=== PATIENT | female | born 1930 | race Hispanic/Latino ===

== ENCOUNTER 2017-01-28 11:45 | Inpatient (IN) | payer MEDICARE, OTHER ==
--- NOTE | 2017-01-28 12:27 | ED PDOC ---
Arrival/HPI - General Chief Complaint: Trauma Time Seen by Provider: 01/28/17 12:00 Historian: Patient - History of Present Illness Narrative History of Present Illness (Text): 01/28/17 12:22 Patient is an 86 year old female whose past medical history includes hypertension and diabetes, who presents to the emergency department after fall with head trauma prior to arrival. Patient states she was standing when she suddenly felt lightheaded and called out to her friend before she fell. She reports that she fell backward onto the hard floor. Patient reports she did not lose consciousness. Denies shortness of breath, chest pain, or abdominal pain before the fall. 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 Currently patient reports she bumped her head and has some neck discomfort. Reports that she takes aspirin 81mg daily. PMD: Dr. Jesús Nielsen Time/Duration: Prior to Arrival Symptom Onset: Sudden Symptom Course: Resolved Modifying Factors (Text): None Associated Symptoms (Text): None Past Medical History - Provider Review Nursing Documentation Reviewed: Yes - Infectious Disease Hx of Infectious Diseases: None - Reproductive Menopause: Yes - Cardiac Hx Hypertension: Yes - Endocrine/Metabolic Hx Diabetes Mellitus Type 2: Yes - Psychiatric Hx Substance Use: No - Anesthesia Hx Anesthesia: No Family/Social History - Physician Review Nursing Documentation Reviewed: Yes Family/Social History: Unknown Family HX Smoking Status: Unknown If Ever Smoked Hx Alcohol Use: No Hx Substance Use: No Allergies/Home Meds Allergies/Adverse Reactions: Allergies No Known Allergies Allergy (Verified 01/28/17 12:03) Home Medications: Home Meds Medication Instructions Recorded Confirmed Glyburide/Metformin HCl 5 mg PO BID 01/28/17 01/28/17 [Glyburid-Metformin 1.25-250 mg] Lisinopril [Zestril] 0 mg PO 01/28/17 MetFORMIN [glucOPHAGE] 500 mg PO BID 01/28/17 01/28/17 Verapamil HCl [Verapamil Sr] 0 mg PO DAILY 01/28/17 01/28/17 Review of Systems - Review of Systems Eyes: absent: Vision Changes ENT: absent: Hearing Changes Respiratory: absent: SOB, Cough Cardiovascular: absent: Chest Pain, Palpitations Gastrointestinal: absent: Abdominal Pain, Nausea, Vomiting Genitourinary Female: absent: Dysuria, Frequency, Hematuria Musculoskeletal: Neck Pain, Other (Posterior head swelling) Skin: absent: Rash Neurological: Other (Lightheadedness). absent: Headache Endocrine: absent: Diaphoresis Psychiatric: absent: Depression Physical Exam Vital Signs Reviewed: Yes Vital Signs Temp Pulse Resp BP Pulse Ox 01/28/17 12:05 98.2 F 80 18 178/111 H 98 Temperature: Afebrile Blood Pressure: Hypertensive Pulse: Regular Respiratory Rate: Normal Appearance: Positive for: Well-Appearing, Non-Toxic, Comfortable Pain Distress: None Mental Status: Positive for: Alert and Oriented X 3 Finger Stick Blood Glucose: 246 - Systems Exam Head: Present: Normocephalic, Other (Large posterior hematoma on scalp. No laceration) Pupils: Present: PERRL Extroacular Muscles: Present: EOMI Conjunctiva: Present: Normal Mouth: Present: Moist Mucous Membranes Neck: Present: Normal Range of Motion. No: MIDLINE TENDERNESS Respiratory/Chest: Present: Clear to Auscultation, Good Air Exchange. No: Respiratory Distress, Accessory Muscle Use Cardiovascular: Present: Regular Rate and Rhythm, Normal S1, S2. No: Murmurs Abdomen: Present: Normal Bowel Sounds. No: Tenderness, Distention, Peritoneal Signs Back: Present: Normal Inspection Upper Extremity: Present: Normal Inspection. No: Cyanosis, Edema Lower Extremity: Present: Normal Inspection, Normal ROM. No: Edema Neurological: Present: GCS=15, CN II-XII Intact, Speech Normal, Gait Normal Skin: Present: Warm, Dry, Normal Color. No: Rashes Psychiatric: Present: Alert, Oriented x 3, Normal Insight, Normal Concentration Medical Decision Making ED Course and Treatment: Impression: Patient is an 86 year old female whose past medical history includes hypertension and diabetes, who presents to the emergency department after fall with head trauma prior to arrival. R/o injury from fall and will need admission to evaluate for cause of lightheadedness causing fall. Differential Diagnosis included but are not limited to: Plan: -- CT Head, C-spine -- CXR -- Labs -- Reassess and disposition Progress Notes: PROCEDURE: CT HEAD WITHOUT CONTRAST. Filling Carrier : GAMA STEWART MD IMPRESSION: 1. 6 mm acute hemorrhagic contusion in the right posterior frontal lobe. Large left parieto-occipital scalp hematoma. 2. 12 x 10 mm left cerebello-pontine angle cyst an extra-axial calcified mass is most compatible with a calcified meningioma. 3. Left frontal lobe cystic encephalomalacia, sequela of remote insult. Status post left frontoparietal craniotomy. 4. Mild chronic microangiopathic changes and mild age-related global parenchymal volume loss. 01/28/17 13:07 CT shows R posterior frontal lobe hemorrhage measuring 6mm with L sided contusion consistent with contrecoup injury. Patient is neurologically intact. Platelets, hgb, and coagulation studies WNL. Paged PMD and Nsx 01/28/17 13:[address] Alli Verma and he is requesting Dr. Meade for neurology and Dr. Horn for Nsx. Will consult ICU for intracranial hemorrhage EKG shows NSR at [address] elevations, interpreted by me. 01/28/17 13:[address] Meade, aware of patient 01/28/17 13:[address] Horn, agrees patient is not surgical candidate, will follow patient. 01/28/17 13:[address] Fontaine, accepts for ICU admission. Repeat BP 156/81 - Critical Care Critical Care Minutes: 30 minutes - Lab Interpretations Lab Results: 01/28/17 12:20 01/28/17 12:20 Lab Results 01/28/17 12:20: Sodium 136, Potassium 4.0, Chloride 99, Carbon Dioxide 29, Anion Gap 12, BUN 17, Creatinine 0.6, Est GFR ( Amer) > 60, Est GFR (Non- Af Amer) > 60, Random Glucose 238 H, Calcium 9.1, Phosphorus 3.3, Magnesium 2.0 , Total Bilirubin 1.0, AST 22, ALT 36, Alkaline Phosphatase 120, Total Creatine Kinase 45, Troponin I 0.02, Total Protein 6.9, Albumin 4.0, Globulin 2.9, Albumin/Globulin Ratio 1.4 01/28/17 12:20: PT 11.7, INR 1.08, APTT 25.9 01/28/17 12:20: WBC 6.0, RBC 4.88, Hgb 15.3, Hct 43.6, MCV 89.3, MCH 31.4, MCHC 35.1, RDW 12.6, Plt Count 202, MPV 10.2, Gran % 71.7 H, Lymph % (Auto) 20.0 L, Newton % (Auto) 6.5 H, Eos % (Auto) 0.8 L, Baso % (Auto) 1.0, Gran # 4.27, Lymph # 1.2, Newton # 0.4, Eos # 0.1, Baso # 0.06 - RAD Interpretation Radiology Orders: 01/28/17 12:05 CHEST PORTABLE [RAD] Stat 01/28/17 12:06 CERVICAL SPINE W/O CONTRAST [CT] Stat HEAD W/O CONTRAST [CT] Stat - Scribe Statement The provider has reviewed the documentation as recorded by the Madalyn Kennedy Provider Scribe Attestation: All medical record entries made by the Madalyn were at my direction and personally dictated by me. I have reviewed the chart and agree that the record accurately reflects my personal performance of the history, physical exam, medical decision making, and the department course for this patient. I have also personally directed, reviewed, and agree with the discharge instructions and disposition. Disposition/Present on Arrival - Present on Arrival Any Indicators Present on Arrival: No History of DVT/PE: No History of Uncontrolled Diabetes: No Urinary Catheter: No History of Decub. Ulcer: No History Surgical Site Infection Following: None - Disposition Have Diagnosis and Disposition been Completed?: Yes Diagnosis: Intracranial hemorrhage after injury without loss of consciousness Disposition: HOSPITALIZED Disposition Time: 12:17 Patient Plan: ICU Patient Problems: Current Active Problems Problem Status Onset Intracranial hemorrhage after injury without loss of consciousness Acute Condition: CRITICAL Referrals: Cristofer Verma MD [Primary Care Provider] - Follow up with primary
[2017-01-28 12:28] LABS: ADD MANUAL DIFF? NO
[2017-01-28 12:36] LABS: BASO # 0.06 K/mm3 (0.0-2.0); EOS # 0.1 (0.0-0.7); EOS % 0.8 % (1.5-5.0); GRAN # 4.27 (1.4-6.5); GRAN % 71.7 % (50.0-68.0); HEMATOCRIT 43.6 % (36.0-48.0); LYMPH # 1.2 (1.2-3.4); MEAN CELL VOLUME 89.3 fL (80.0-105.0); MEAN CORPUSCULAR HEMOGLOBIN 31.4 pg (25.0-35.0); MEAN CORPUSCULAR HGB CONC 35.1 g/dl (31.0-37.0); MEAN PLATELET VOLUME 10.2 fl (7.0-11.0); MONO # 0.4 (0.1-0.6); MONO % 6.5 % (1.0-6.0); PLATELET COUNT 202 10^3/uL (120.0-450.0); RED CELL DISTRIBUTION WIDTH 12.6 % (11.5-14.5)
[2017-01-28 12:43] LABS: ALB/GLOB RATIO 1.4 (1.1-1.8); ALKALINE PHOSPHATASE 120 U/L (38-133); ALT/SGPT 36 U/L (7-56); AST/SGOT 22 U/L (15-39); BLOOD UREA NITROGEN 17 mg/dL (7-21); CALCIUM 9.1 mg/dL (8.4-10.5); CARBON DIOXIDE 29 mmol/L (21-33); CHLORIDE 99 mmol/L (98-107); GFR AFRICAN-AMERICAN > 60; GLUCOSE,RANDOM 238 mg/dL (70-110); INR 1.08 (0.93-1.08); PARTIAL THROMBOPLASTIN TIME 25.9 Seconds (23.7-30.8); PHOSPHOROUS 3.3 mg/dL (2.5-4.5); SODIUM 136 mmol/L (132-148); TOTAL PROTEIN 6.9 g/dL (5.8-8.3)
[2017-01-28 12:55] LABS: TROPONIN I 0.02 ng/mL
--- NOTE | 2017-01-28 13:08 | CT ---
PROCEDURE: CT HEAD WITHOUT CONTRAST. HISTORY: Fall COMPARISON: None available. TECHNIQUE: Axial computed tomography images were obtained through the head/brain without intravenous contrast. Radiation dose: Total exam DLP = 688.64 mGy-cm. This CT exam was performed using one or more of the following dose reduction techniques: Automated exposure control, adjustment of the mA and/or kV according to patient size, and/or use of iterative reconstruction technique. FINDINGS: HEMORRHAGE: There is a 6 mm hemorrhagic contusion in the right posterior frontal lobe. BRAIN: A 12 x 10 mm left cerebello-pontine angle cistern extra-axial calcified mass is present. There is left frontal lobe cystic encephalomalacia. Status post left frontoparietal craniotomy. There are mild chronic microangiopathic changes. There is no evidence of extra-axial fluid collection, herniation or midline shift. VENTRICLES: There is mild age-related global parenchymal volume loss and proportionate enlargement of the ventricles and cortical sulci. CALVARIUM: There is no calvarial fracture. There is a large left parieto-occipital scalp hematoma. PARANASAL SINUSES: There are aerosolized secretions in the right sphenoid chamber. There is mild mucosal thickening in the maxillary sinuses. The remaining included paranasal sinuses are predominantly clear. MASTOID AIR CELLS: Predominantly clear. OTHER FINDINGS: None. IMPRESSION: 1. 6 mm acute hemorrhagic contusion in the right posterior frontal lobe. Large left parieto-occipital scalp hematoma. 2. 12 x 10 mm left cerebello-pontine angle cyst an extra-axial calcified mass is most compatible with a calcified meningioma. 3. Left frontal lobe cystic encephalomalacia, sequela of remote insult. Status post left frontoparietal craniotomy. 4. Mild chronic microangiopathic changes and mild age-related global parenchymal volume loss. Findings were discussed with Dr. Ramona Tamez on 01/28/2017 at 1:05 p.m.
--- NOTE | 2017-01-28 13:18 | CT ---
PROCEDURE: CT Cervical Spine without contrast HISTORY: Fall with neck pain COMPARISON: None available. TECHNIQUE: Axial computed tomography images were obtained of the cervical spine without the use of intravenous contrast. Coronal and sagittal reformatted images were created and reviewed. Radiation dose: Total exam DLP = 460 mGy-cm. This CT exam was performed using one or more of the following dose reduction techniques: Automated exposure control, adjustment of the mA and/or kV according to patient size, and/or use of iterative reconstruction technique. FINDINGS: VERTEBRAE: No fracture. Normal alignment. No destructive bony lesion. DISCS/SPINAL CANAL/NEURAL FORAMINA: No significant central canal or neural foraminal stenosis. Discs heights are grossly preserved. PARASPINAL SOFT TISSUES: Unremarkable. OTHER FINDINGS: None. IMPRESSION: Unremarkable CT of the cervical spine.
--- NOTE | 2017-01-28 13:47 | RAD ---
HISTORY: fall COMPARISON: No prior. FINDINGS: LUNGS: No active pulmonary disease. PLEURA: No significant pleural effusion identified, no pneumothorax apparent. CARDIOVASCULAR: Normal. OSSEOUS STRUCTURES: No significant abnormalities. VISUALIZED UPPER ABDOMEN: Normal. OTHER FINDINGS: None. IMPRESSION: No active disease.
--- NOTE | 2017-01-28 14:55 | CON ---
DATE: 01/28/2017 HISTORY OF PRESENT ILLNESS: The patient seen and examined at bedside. This is an 86-year-old lady with history of hypertension and diabetes who presented to the Emergency Department after a fall with hitting her head prior to arrival. A small 5 mm hematoma was noted on CT head. Even though patient was deemed not needing neurosurgical intervention, ICU observation was recommended by neurosurgical service and the patient was admitted to ICU for overnight observation, blood pressure control and frequent neurological exam. No nausea, no vomiting, no diarrhea, no constipation, no chest pain, no shortness of breath. PAST MEDICAL HISTORY: Hypertension and diabetes. SOCIAL HISTORY: No alcohol or illicit drug abuse. No tobacco smoking. FAMILY HISTORY: Noncontributory. ALLERGIES: NKDA. MEDICATIONS AT HOME: Glyburide, metformin, lisinopril, verapamil. REVIEW OF SYSTEMS: Review of 12 organ system, other than mentioned in history of present illness, is negative. PHYSICAL EXAMINATION: VITAL SIGNS: Blood pressure 156/65, temperature 98.2, heart rate 80, respiration 18, oxygen saturation 98% on room air. HEAD AND NECK: Atraumatic. LUNGS: Clear to auscultation bilaterally. HEART: Regular rate and rhythm. S1, S2 normal. ABDOMEN: Soft, nontender, nondistended. MUSCULOSKELETAL: No C/C/E. NEUROLOGIC: The patient has 5/5 motor strength in both upper and lower extremities. There is no deficit in performing smiling, sticking out tongue, shrugging the shoulders or raising the eyebrows. The patient talks full sentences and speech is not affected. SKIN: Moist. PSYCHIATRIC: The patient is alert and oriented x 3. LABORATORY DATA: WBC 6, hemoglobin 15.3, platelet count 202. Sodium 136, potassium 4, chloride 99, carbon dioxide 29, BUN 17, creatinine 0.6, glucose 236. INR 1.08. CAT scan of the head revealed a 6 mm acute hemorrhagic contusion in the right posterior frontal lobe, large left parietooccipital scalp hematoma, 12 x 10 mm left cerebellar pontine angle cyst and extraaxial calcified masses most compatible with calcified meningioma, left frontal lobe cystic encephalomalacia , mild chronic microangiopathic changes and mild age-related global parenchymal volume loss. CAT scan of the cervical spine is unremarkable. Chest x-ray: No acute pulmonary disease. Some chronic changes, subsegmental right upper lobe atelectasis? ASSESSMENT AND PLAN: This is an 86-year-old lady with acute intracranial hemorrhage after fall. No neurological deficit. No need for neurosurgical intervention as per neurosurgeon, Dr. Horn. The patient is alert and oriented x 3. She is able to protect her airways. At present time, we will maintain her blood pressure between 140 and 160 range systolic. Will continue to target euvolemia, euglycemia, normothermia and oxygen saturation more than 90 %. Aggressively avoiding hypoglycemia and fever. The patient is not on any antiplatelets or anticoagulants. ccm time 40 min Jarocho Fontaine MD cc: [id number] TT: 01/28/2017 14:55:06 Confirmation # [id number] Dictation # [id number] mn JAMES
--- NOTE | 2017-01-28 16:51 | CARD ---
APPROVED REPORT EKG Measurement Heart [id number] CT [id number] <Conclusion> Normal sinus rhythm Cannot rule out Inferior infarct, age undetermined Abnormal ECG
[2017-01-28 17:55] VITALS: BMI 28.6
[2017-01-28] MEDS ORDERED: Pneumococcal 23-Valent Vaccine IM ONE (17:56)
[2017-01-28] MEDS: Insulin Reg-LOW-Coverage SC SCH ×4 (18:21→23:18)
[2017-01-28] MEDS: Sodium Chloride 0.9% 1,000 ML IV SCH (18:22)
--- NOTE | 2017-01-28 19:55 | CON ---
DATE: 01/28/2017 HISTORY OF PRESENT ILLNESS: This is an 86-year-old white female with diabetes, hypertension who came to the Emergency Room following a fall and had a small hematoma on the CAT scan. The patient is tra nsferred to ICU. The patient is more alert and awake. PAST MEDICAL HISTORY: Hypertension, diabetes. ALLERGIES: No known drug allergies. REVIEW OF SYSTEMS: A 10-point review of system was negative. A CAT scan of the head shows 6 mm hemorrhagic contusion on the right posterior frontal and large left parietal occipital hematoma. Also had left cerebellar pontine angle cyst and called to evaluate the patient. ALLERGY: No known drug allergy. MEDICATIONS AT HOME: Glyburide, metformin, lisinopril, and verapamil. PHYSICAL EXAMINATION: HEENT: Normocephalic, atraumatic. NECK: Supple. NEUROLOGIC: Alert, awake, oriented x 3. No aphasia. Cranial nerves II through XII were tested. Pu pils reactive. EOM intact. Visual soliman full. No facial asymmetry. Tongue midline. Spontaneous movement of the extremities noted. Deep tendon reflexes 1+. Both plantars are downgoing. Sensory a ppears intact. Cerebellar gait deferred. IMPRESSION: An 86-year-old with acute intracranial hemorrhage following a fall and neurosurgeon cons ulted. PLAN: Continue present management and we will follow up. Ranjan Meade MD cc: [id number] TT: 01/28/2017 19:54:10 Confirmation # [id number] Dictation # [id number] olimpia
[2017-01-29] MEDS: Insulin Reg-LOW-Coverage SC SCH ×7 (01:19→22:45)
[2017-01-29] MEDS: Sodium Chloride 0.9% 1,000 ML IV SCH (03:30)
[2017-01-29 05:27] LABS: ADD MANUAL DIFF? NO
[2017-01-29 05:38] LABS: HEMATOCRIT 43.4 % (36.0-48.0); MEAN CELL VOLUME 90.8 fL (80.0-105.0); WHITE BLOOD COUNT 8.4 10^3/ul (4.5-11.0)
[2017-01-29 05:39] LABS: BASO % 0.6 % (0.0-3.0); EOS # 0.2 (0.0-0.7); EOS % 2.7 % (1.5-5.0); GRAN # 5.37 (1.4-6.5); GRAN % 63.7 % (50.0-68.0); LYMPH % 23.6 % (22.0-35.0); MEAN CORPUSCULAR HEMOGLOBIN 30.8 pg (25.0-35.0); MEAN CORPUSCULAR HGB CONC 33.9 g/dl (31.0-37.0); MEAN PLATELET VOLUME 10.4 fl (7.0-11.0); MONO # 0.8 (0.1-0.6); MONO % 9.4 % (1.0-6.0); PLATELET COUNT 198 10^3/uL (120.0-450.0); RED CELL DISTRIBUTION WIDTH 13.1 % (11.5-14.5)
[2017-01-29 05:40] LABS: BASO # 0.05 K/mm3 (0.0-2.0)
[2017-01-29 05:59] LABS: ALB/GLOB RATIO 1.2 (1.1-1.8); ALKALINE PHOSPHATASE 92 U/L (38-133); ALT/SGPT 34 U/L (7-56); AST/SGOT 23 U/L (15-39); BLOOD UREA NITROGEN 15 mg/dL (7-21); CALCIUM 8.9 mg/dL (8.4-10.5); CARBON DIOXIDE 29 mmol/L (21-33); CHLORIDE 104 mmol/L (98-107); GFR AFRICAN-AMERICAN > 60; GLUCOSE,RANDOM 147 mg/dL (70-110); SODIUM 139 mmol/L (132-148); TOTAL PROTEIN 6.2 g/dL (5.8-8.3)
--- NOTE | 2017-01-29 08:38 | PN ---
DATE: 01/29/2017 SUBJECTIVE: The patient is resting in bed with no complaints of headache, dizziness and is alert and awake and very appropriate this morning. She stated that she continues to have a bump on the back o f her head from the fall. No fever or chills. No nausea or vomiting. No abdominal pain, no chest p ain, no cough or congestion. PHYSICAL EXAMINATION: VITAL SIGNS: Her temperature is 98.3, her pulse is 79, respirations are 16, and BP is 159/87. SKIN: Warm and dry. HEENT: Head there is a bump on the posterior aspect of her head from the fall, but normocephalic. NECK: Supple, no JVD, no thyroid enlargement, no lymph nodes. HEART: Has regular rate and rhythm, normal S1, S2. LUNGS: Reveal good breath sounds bilaterally. ABDOMEN: Soft, nontender, normal bowel sounds. No organomegaly noted. GENITALIA AND RECTAL: Deferred. MUSCULOSKELETAL: No joint deformities. EXTREMITIES: Reveal no significant edema. NEUROLOGIC: She seems to be grossly intact. LABORATORY DATA: As far her laboratories are concerned, her white count is 8.4, hemoglobin is 14.7, hematocrit 43.4 with platelets of 198,000. Her sodium is 139, potassium 4.0, chloride 104, CO2 of 29 with a BUN of 15, creatinine 0.6 and a glucose of 166. IMPRESSION: As far as my impression is concerned this patient has intracranial hemorrhage secondary to fall at home. She has a history of hypertension and diabetes. PLAN: We will continue with hydralazine for her blood pressure and insulin to regulate her blood sug ars. She is on Protonix as well as normal saline. Also, she is on some IV acetaminophen. The patie nt continues to get neuro checks and we will follow with neurology as well as neurosurgery. Zackary Reddy MD cc: [id number] TT: 01/29/2017 08:37:21 Confirmation # [id number] Dictation # [id number] olimpia
--- NOTE | 2017-01-29 10:22 | CT ---
PROCEDURE: CT HEAD WITHOUT CONTRAST. HISTORY: re-evaluate intracranial hemorrhage COMPARISON: 01/28/17 TECHNIQUE: Axial computed tomography images were obtained through the head/brain without intravenous contrast. Radiation dose: Total exam DLP = 677 mGy-cm. This CT exam was performed using one or more of the following dose reduction techniques: Automated exposure control, adjustment of the mA and/or kV according to patient size, and/or use of iterative reconstruction technique. FINDINGS: HEMORRHAGE: Stable 6 mm hyperdenisty inthe right posterior frontal lobe, possibily a small hemorrhage. BRAIN: 12 mm calcified meningioma in the left cp angle. Left frontal lobe cystic encephalomalacia. Status post left frontoparietal craniotomy no atrophy or chronic microvascular ischemic changes. VENTRICLES: Unremarkable. No hydrocephalus. CALVARIUM: Unremarkable. PARANASAL SINUSES: Unremarkable as visualized. No significant inflammatory changes. MASTOID AIR CELLS: Unremarkable as visualized. No inflammatory changes. OTHER FINDINGS: None. IMPRESSION: No interval change.
--- NOTE | 2017-01-29 10:51 | CON ---
DATE: 01/29/2017 HISTORY OF PRESENT ILLNESS: An 86-year-old woman admitted yesterday after taking a fall. She felt l ightheaded and hit her head. Currently, she really does not have any complaints. She has a previous history for excision of meningioma done many years ago by my service. Her most recent CAT scan done on admission demonstrates a 6 mm acute hemorrhagic what they read as a contusion in the right delivery merchandiser ior frontal lobe with a large left scalp hematoma. My impression is that this is most likely a small hemorrhagic infarct because the location is completely not consistent with trauma. However, she is fully awake, alert and oriented. Her cranial nerves are fully intact, she has no motor deficits, no weakness, no sensory deficits and at this point, from my point of view, she is cleared for discharge. Greg Horn MD cc: [id number] TT: 01/29/2017 10:50:48 Confirmation # [id number] Dictation # [id number] giana
[2017-01-29] MEDS: Verapamil 240 mg ER Tab PO SCH (12:28)
--- NOTE | 2017-01-29 13:28 | US ---
PROCEDURE: Bilateral carotid artery duplex ultrasound HISTORY: Carotid stenosis CVA PHYSICIAN(S): Gera Issa MD. TECHNIQUE: Duplex sonography and color-flow Doppler were used to evaluate the carotid bifurcations and limited segments of the vertebral arteries bilaterally. FINDINGS: There is mild smooth heterogeneous echogenic plaque noted at the carotid bifurcations bilaterally. The peak systolic velocity in the proximal right internal carotid artery is 92 cm/sec. This corresponds to a 20 to 39% proximal right ICA stenosis. Normal systolic velocities are noted in the proximal right external carotid artery. There is antegrade flow in the small right vertebral artery. The peak systolic velocity in the proximal left internal carotid artery is 98 cm/sec. This corresponds to a 20 to 39% proximal left ICA stenosis. Normal systolic velocities are noted in the proximal left external carotid artery. There is antegrade flow in the dominant left vertebral artery. IMPRESSION: 1. Bilateral 20-39% proximal ICA stenoses. 2. Antegrade flow in both vertebral arteries.
--- NOTE | 2017-01-29 18:45 | CARD ---
APPROVED REPORT EXAM: Two-dimensional and M-mode echocardiogram with Doppler and color Doppler. 2D DIMENSIONS Left Atrium (2D)2.1 (1.6-4.0cm)IVSd1.5 (0.7-1.1cm) LVDd4.4 (3.9-5.9cm)LVOT Diameter2.1 (1.8-2.4cm) PWd1.4 (0.7-1.1cm)LVDs3.0 (2.5-4.0cm) FS (%) 30.7 %LVEF (%)58.4 (>50%) M-Mode DIMENSIONS Aortic Root3.60 (2.2-3.7cm)Aortic Cusp Exc.1.80 (1.5-2.0cm) Aortic Valve AoV Peak Hkentrlw303.0cm/sAoV VTI31.6cmAO Peak GR.14mmHg LVOT Peak Dccnyujq151.0cm/sLVOT VTI21.50cmAO Mean GR.7mmHg CARMEN (VMAX)2.24ra8VNR (VTI)2.35cm2 Mitral Valve MV E Mahxeaqv992.0cm/sMV A Ebscmtou046.0cm/sE/A ratio0.8 TDI Lateral E' Peak V7.60cm/sMedial E' Peak V3.12cm/sE/Lateral E'13.7 E/Medial E'33.3 Tricuspid Valve TR Peak Chmuduii314po/sTR Peak Gr.30mmHg LEFT VENTRICLE The left ventricle is normal size. There is moderate concentric left ventricular hypertrophy. The left ventricular function is normal. The left ventricular ejection fraction is within the normal range. There is normal LV segmental wall motion. Transmitral Doppler flow pattern is Grade I-abnormal relaxation pattern. RIGHT VENTRICLE The right ventricle is normal size. There is normal right ventricular wall thickness. The right ventricular systolic function is normal. ATRIA The left atrium size is normal. The right atrium size is normal. AORTIC VALVE The aortic valve is severely sclerotic. MITRAL VALVE Mitral annular calcification is severe. TRICUSPID VALVE There is trace tricuspid regurgitation. GREAT VESSELS The aortic root is normal in size. The IVC is normal in size and collapses >50% with inspiration. PERICARDIAL EFFUSION There is a trace loculated anterior pericardial effusion. <Conclusion> The left ventricle is normal size. There is moderate concentric left ventricular hypertrophy. The left ventricular function is normal. The left ventricular ejection fraction is within the normal range. There is normal LV segmental wall motion. Transmitral Doppler flow pattern is Grade I-abnormal relaxation pattern. The aortic valve is severely sclerotic.
[2017-01-29 18:52] VITALS: RESP 20
--- NOTE | 2017-01-29 21:30 | HP ---
CHIEF COMPLAINT: Fall with head trauma. HISTORY OF PRESENT ILLNESS: This is an 86-year-old woman known to my partner, Dr. Jesús Verma, for several years who presented to the Emergency Room after a mechanical trip and fall __was___ reported. There was some head trauma. CT scan was done revealing what was initially thought to be an intracerebral bleed versus cerebral contusion. The patient was awake, alert, clear, appropriate with no neurologic deficit, but admitted to intensive care with neurology and neurosurgical consultations called. PAST MEDICAL HISTORY: Is significant for hypertension and diabetes. PAST SURGICAL HISTORY: Is significant for a benign meningioma removed in 2001 and ureteral colic. She is status post cholecystectomy and is status post hysterectomy due to uterine prolapse. She also has a history of diabetes and diverticulosis. CURRENT MEDICATIONS: Include metformin, glyburide, verapamil 240 mg daily, aspirin 81, MiraLax and lisinopril. ALLERGIES: She has no known allergies. SOCIAL HISTORY: Does not smoke, never did. Does not drink alcohol. Drinks several cups of coffee a day. She is a homemaker, a with 1 son. PHYSICAL EXAMINATION: GENERAL: The patient was admitted to the Emergency Room with no neurologic deficit. Awake, alert, clear, and appropriate. LUNGS: Clear. HEART: Regular. EXTREMITIES: Showed no edema. IMPRESSION: Fall/near syncopal episode, with no reported loss of consciousness and an intracerebral hemorrhage versus cerebral contusion being reported on CT scan. Will await neurology and neurosurgical opinion and follow up CAT scan is ordered. The patient is admitted to the intensive care unit. Alli Verma MD cc: [id number] TT: 01/29/2017 21:29:04 corinne RAMIREZ
--- NOTE | 2017-01-29 21:39 | PN ---
DATE: 01/29/2017 The patient was seen this Tuesday morning in the critical care unit, ICU bed 5. She is sitting in b ed, comfortable, awake, alert, clear and appropriate. The case was discussed at length with hospital veterinary technician assistant, Dr. Reddy, and to ICU residents. PHYSICAL EXAMINATION: GENERAL: The patient is awake, alert, clear, appropriate and in no acute distress and has no complai nts. No headache, no neurologic deficits. LUNGS: Clear with good aeration. HEART: Regular, not tachycardic. EXTREMITIES: Show no edema. Neurosurgical note is appreciated. A final decision is that this was, in fact, an internal intracran ial hemorrhage with fall and hematoma in the left occipitoparietal area. The patient is doing very w ell. Her blood pressure was a bit elevated. Therefore, our plan today will be to discharge from the intensive care unit and get the patient out of bed and ambulating, resume prior medications for her hypertension including verapamil and lisinopril as well as prior medications for diabetes including m etformin and glipizide. I explained to the patient there is perhaps a 40% chance she will be ready f or discharge tomorrow. If not, certainly the next day as there is no neurologic deficit and she is d oing amazingly well. Alli Verma MD cc: [id number] TT: 01/29/2017 21:39:03 Confirmation # [id number] Dictation # [id number] dn
[2017-01-30] MEDS: Sodium Chloride 0.9% 1,000 ML IV SCH ×2 (02:46→12:36)
[2017-01-30 05:54] VITALS: O2SAT 94
[2017-01-30 07:59] LABS: ADD MANUAL DIFF? NO
[2017-01-30 08:15] LABS: ALB/GLOB RATIO 1.2 (1.1-1.8); ALKALINE PHOSPHATASE 96 U/L (38-133); ALT/SGPT 31 U/L (7-56); AST/SGOT 25 U/L (15-39); BILIRUBIN,TOTAL 1.3 mg/dL (0.2-1.3); BLOOD UREA NITROGEN 11 mg/dL (7-21); CALCIUM 8.6 mg/dL (8.4-10.5); CARBON DIOXIDE 21 mmol/L (21-33); CHLORIDE 106 mmol/L (95-110); GFR AFRICAN-AMERICAN > 60; GLUCOSE,RANDOM 161 mg/dL (70-110); POTASSIUM 3.7 mmol/L (3.6-5.0); SODIUM 136 mmol/L (132-148); TOTAL PROTEIN 6.1 g/dL (5.8-8.3)
[2017-01-30] MEDS: Insulin Reg-LOW-Coverage SC SCH ×2 (08:18→12:27)
[2017-01-30 09:16] LABS: BASO # 0.03 K/mm3 (0.0-2.0); BASO % 0.3 % (0.0-3.0); EOS # 0.2 (0.0-0.7); GRAN # 6.05 (1.4-6.5); GRAN % 70.6 % (50.0-68.0); HEMATOCRIT 40.6 % (36.0-48.0); LYMPH # 1.6 (1.2-3.4); LYMPH % 18.4 % (22.0-35.0); MEAN CELL VOLUME 89.8 fL (80.0-105.0); MEAN CORPUSCULAR HEMOGLOBIN 31.2 pg (25.0-35.0); MEAN CORPUSCULAR HGB CONC 34.7 g/dl (31.0-37.0); MEAN PLATELET VOLUME 10.6 fl (7.0-11.0); MONO # 0.8 (0.1-0.6); MONO % 8.7 % (1.0-6.0); PLATELET COUNT 203 10^3/uL (120.0-450.0); WHITE BLOOD COUNT 8.6 10^3/ul (4.5-11.0)
[2017-01-30] MEDS: Verapamil 240 mg ER Tab PO SCH (09:19)
[2017-01-30 12:08] VITALS: BP 147/78; TEMP 98.4
[2017-01-30 15:20] VITALS: PULSE 83
--- NOTE | 2017-01-31 11:36 | DS ---
This is an 86-year-old woman with a history of hypertension, diabetes, was seen regularly in the [facility] by my partner, Dr. Jesús Verma. She presented to the Emergency Room after the episode of fall. CT scan was abnormal showing what was initially read and intubated to be an intracerebral hemorrhage versus a cerebral contusion related to fall. She was initially seen and admitted to the intensive ca re unit. Neurology and neurosurgical consultations were called. The final decision was that this wa s in fact a small 6-mm intracerebral hemorrhage resulting in her fall, and a large occipital hematoma on the scalp. The patient never had any neurologic deficit. She was awake, clear, alert, sharp thr ough the entire visit to the Emergency Room and hospital admission. The next day, when seen by neurosurgery, she was cleared for discharge. She was discharged to home. She left the intensive care unit for a monitored floor, was fully ambulatory, walking about the floo r, awake, alert, clear, again, with no neurologic deficits. I saw her this Tuesday morning. She was in good spirits and looking forward to going home - in fact, very much wanting to go home. She was b eing visited by her son. The case was reviewed with both of them, making them fully informed of the findings. The importance of keeping her blood pressure under good control was explained. She had be en back on her home medications since her day in the ICU, and so today, Tuesday, she is ready for disc harge to home. FINAL DISCHARGE DIAGNOSES: 1. Acute intracerebral hemorrhage. 2. Hypertension. 3. Diabetes. 4. Hematoma on the scalp in the posterior occipital region on the left side. She will be seen in followup in the office in 2-4 days. Alli Verma MD cc: [id number] TT: 01/31/2017 11:35:32 olimpia
== END 2017-01-30 14:58 | disposition home or self-care (01) | DRG 87 ==
LOC: ED 11:45 → ERH 13:36 → CCU 16:00 → 2RNO 01-29 14:45
PROVIDERS: ADMIT Internal Medicine; ATTEND Internal Medicine
DX: S06.300A Unspecified focal traumatic brain injury without loss of consciousness, initial encounter (principal); S00.03XA Contusion of scalp, initial encounter; E11.9 Type 2 diabetes mellitus without complications; I10 Essential (primary) hypertension; K57.90 Diverticulosis of intestine, part unspecified, without perforation or abscess without bleeding; W01.198A Fall on same level from slipping, tripping and stumbling with subsequent striking against other object, initial encounter; Y92.009 Unspecified place in unspecified non-institutional (private) residence as the place of occurrence of the external cause; Z79.84 Long term (current) use of oral hypoglycemic drugs